=== PATIENT | male | born 1975 | race Caucasian/White ===

== ENCOUNTER 2016-10-15 14:52 | Day surgery (SDC) | payer MEDICAID, OTHER ==
[~2016-10-15] VITALS: Ht 185.4 cm; Wt 86.4 kg
[2016-10-15] VITALS (13 sets, daily range): BP systolic 111–135; BP diastolic 71–96; PULSE 78–108; RESP 8–30; O2SAT 95–100
--- NOTE | 2016-10-15 15:08 | ED.REPORT ---
HPI-General Illness Date of Service Oct 15, 2016 ED Provider: Russ Granados MD Patient is a 41 year old male who presents to the ED complaining of trouble swallowing onset last night.He is unable to manage his secretions or swallow fluids so he is spitting into a bottle. Associated symptoms involve sore throat , change in voice, and vomiting. He denies fever, cough, congestion, or any other symptoms. He had similar symptoms a month ago that resolved after a day. Nursing Notes Stated Complaint: DIFFICULTY SWALLOWING Chief Complaint: ENT & Mouth Nursing Notes Reviewed: Yes Allergies: Coded Allergies: No Known Allergies (Unverified , 10/15/16) Scheduled Omeprazole (Omeprazole) 20 Mg Capsule.dr 20 MG PO DAILY Miscellaneous Medications Magnesium Amino Acid Chelate (Magnesium) 100 Mg Tablet 100 MG PO Ubidecarenone (Coq10) 50 Mg Tab.chew 50 MG PO General Time Seen by MD: 15:06 Chief Complaint Other (Dysphagia) Hx Obtained From: Patient, Spouse Arrived By: Walk-in Sudden in Onset?: Yes Onset Occurred: Yesterday Symptom Duration: Since onset Similar Sx Previous: Yes Past Medical History Past Medical History Pericarditis Reports: GERD, Denies: Cancer Past Surgical History Reports: Appendectomy, Tonsillectomy Review of Systems -congestion Full Review of Systems Constitutional: Denies: Fever Ears / Nose / Throat: Reports: Sore throat, Voice change, Denies: Tongue swelling Respiratory: Denies: Non-productive cough GI: Reports: Dysphagia, Vomiting Complete sys rev & neg: except as marked. Physical Exam Vital Signs Vital Signs Date Time Temp Pulse Resp B/P Pulse Ox O2 Delivery O2 Flow Rate FiO2 10/15/16 16:29 102 30 135/96 100 Room Air 10/15/16 14:59 36.7 112 18 114/80 98 Room Air General/Constitutional: Well-developed, Well-nourished Head / Eyes: Atraumatic, Normocephalic Respiratory: Breath sounds normal, Clear to auscultation, No respiratory distress Abdomen / GI: Soft, Non-tender Skin: Warm, Dry Neurologic: Alert, Oriented, Nonfocal Psychiatric: Mood/affect normal, Behavior normal, Normal thought content ENT: Airway patent, Pharynx NL no tongue swelling Neck: Full range of motion, No swelling Interpretation & Diagnostics X-Ray Chest Interpretation Chest Xray Interpretation: No acute disease View: Portable, 1 view Interpretation / Wet Read by: Interpret - Radiologist Re-Eval/Medical Decision Med Decision/Clinical Course 41-year-old male history of acid reflux presenting with dysphagia since last night. Patient unable to tolerate by mouth. He failed glucagon and Pepsi. Admitted to endoscopy, Dr Desir. Time of Eval: 15:52 Re-Evaluation/Progress Note: rechecked pt. Tried to drink water but vomited. Time of Eval: 16:30 Re-Evaluation/Progress Note: Discussed admit to endo. Patient understands and agrees with plan. All questions addressed at this time. Consultation #1: Referral / Consult Name: Jon Desir MD Call Returned at: 15:48 Note: Discussed patient's case. Pt should try PO challenge. Consultation #2: Referral / Consult Name: Jon Desir MD Call Returned at: 16:25 Inventory Checker: Agrees with eval, Agrees with plan Note: Updated on pt case. Pt will go to endo. Counseled Regarding: Diagnosis, Lab results, Need for admission Discharge & Departure Primary Impression: Dysphagia Dysphagia type: unspecified Qualified Code: R13.10 - Dysphagia, unspecified Disposition: ADMITTED TO HOSPITAL Scribe Attestation Portions of this note were transcribed by Nacho Gutierrez. I, Dr. Granados personally performed the history, physical exam and medical decision-making; I reviewed and confirmed the accuracy of the information in the transcribed note. Signed by: Nacho Gutierrez 10/15/2016, 1715 Russ Granados MD Oct 15, 2016 15:08 NACHO GUTIERREZ Oct 15, 2016 15:15
[2016-10-15] MEDS ORDERED: Glucagon 1 mg/mL Inj IV ONE ×2 (15:55→17:06)
[2016-10-15] MEDS ORDERED: EPHEDrine/NS 5 mg/mL 5 mL Syringe ONE (17:06)
[2016-10-15] MEDS ORDERED: Propofol 10,000 mCg/mL 20 mL Inj ONE (17:06)
[2016-10-15] MEDS ORDERED: Phenylephrine/NS 100 mCg/mL 10 mL Syringe IVPUSH ONE (17:06)
[2016-10-15] MEDS ORDERED: Dexamethasone 4 mg/mL Inj ONE (17:06)
[2016-10-15] MEDS ORDERED: Ketamine 10 mg/mL 20 mL Inj ONE (17:06)
[2016-10-15] MEDS ORDERED: Ondansetron 2 mg/mL 2 mL Inj ONE (17:06)
[2016-10-15] MEDS ORDERED: fentaNYL-PF 50 mCg/mL 2 mL Inj ONE (17:06)
[2016-10-15] MEDS ORDERED: OMEP20CA11 PO (17:42)
[2016-10-15] MEDS ORDERED: UBID50TA3 PO (17:42)
[2016-10-15] MEDS ORDERED: MAGN100T5 PO (17:42)
[2016-10-15] MEDS ORDERED: Sodium Chloride LOK Flush 10 mL Syringe IV PRN (17:45)
[2016-10-15] MEDS ORDERED: fentaNYL-PF 50 mCg/mL 2 mL Inj IVPUSH PRN ×2 (17:45→19:30)
[2016-10-15] MEDS: 0.9% Sodium Chloride 1,000 ML IV PRN ×2 (17:47→19:04)
[2016-10-15] MEDS ORDERED: Lactated Ringer's 500 ML IV PRN (19:26)
[2016-10-15] MEDS ORDERED: Lactated Ringer's 1,000 ML IV SCH (19:26)
[2016-10-15] MEDS ORDERED: EPHEDrine Sulfate 50 mg/mL Inj IVPUSH PRN (19:30)
[2016-10-15] MEDS ORDERED: HYDROmorphone 1 mg/mL Inj IVPUSH PRN (19:30)
[2016-10-15] MEDS ORDERED: Dexamethasone 4 mg/mL Inj IVPUSH PRN (19:30)
[2016-10-15] MEDS ORDERED: Ondansetron 2 mg/mL 2 mL Inj IVPUSH PRN (19:30)
[2016-10-15] MEDS ORDERED: MetoCLOpramide 5 mg/mL 2 mL Inj IVPUSH PRN (19:30)
[2016-10-15] MEDS ORDERED: Phenylephrine 10,000 mCg/mL Inj IVPUSH PRN (19:30)
--- NOTE | 2016-10-15 19:33 | CONS ---
[address] [address] CONSULTATION REPORT PATIENT: JOSÉ MIGUEL CHAUDHRY : 1975 MR#: [id number] ADMIT: 10/15/2016 JOB ID: [id number] DATE OF SERVICE: REQUESTING PROVIDER: Russ Granados MD. REASON FOR CONSULTATION: Inability to swallow. HISTORY OF PRESENT ILLNESS: This is a 41-year-old male who had similar problems where he transiently could not swallow any liquids about a month ago. He has a lengthy history of reflux for which he is treated using epil-juy-jyszdxg antisecretory therapy. He could not recall the name. He was eating something yesterday. It sounds like pork ribs. He denies that he actually has any stuck in his esophagus but shortly after starting his meal has not been able to consume even water since then. He was under the impression that he vomited everything but again cannot continue tolerate spit or fluids. REVIEW OF SYSTEMS: No cardiopulmonary complaints. Otherwise, review is negative. ALLERGIES: No known drug allergies. MEDICATIONS: He takes an [id number]-rah-[id number] antisecretory. Otherwise, no meds. No aspirin, no NSAIDs. PAST MEDICAL HISTORY: Pericarditis, GERD, appendectomy, tonsillectomy. FAMILY HISTORY: Noncontributory. SOCIAL HISTORY: No habits. PHYSICAL EXAMINATION: The patient is in no distress, conversational. Alert, oriented, appropriate, cooperative. Pulse in the low 100s. Blood pressure 130/92, normal pulse ox breathing comfortably, Afebrile, Lungs clear bilaterally, acceptable air entry, heart regular, no peripheral pitting edema, abdomen soft, non tender. ASSESSMENT AND PLAN: This is a 41 year old with suspected impacted esophageal foreign body. EGD was discussed. The patient consents to procedure. MTDD
--- NOTE | 2016-10-15 20:27 | ENDO ---
[address] [address] ENDOSCOPY PROCEDURE PATIENT: JOSÉ MIGUEL CHAUDHRY : 1975 MR#: [id number] ADMIT: 10/15/2016 JOB ID: [id number] INDICATIONS: This is a 41-year-old male with suspected esophageal foreign body. PROCEDURE: Esophagogastroscopy with biopsy and endoscopic relief of food impaction. A 22 modifier was requested. This procedure took almost 2 hours because of the difficulty sedation. COMPLICATIONS: None identified. SEDATION: Conscious sedation medications given by me were 5 mg Versed, 100 mcg fentanyl. After we aborted our attempt at conscious sedation, Dr. Marcel Gallego was involved and pursued at 1st MAC level of anesthesia. We then had to graduate all the way up to full general anesthesia with endotracheal intubation. PROCEDURE INFORMATION: After the risks and benefits were explained, written and verbal informed consent was obtained, the patient was brought into the endoscopy suite and placed into the left lateral decubitus position. Sedation was initially achieved as above. The patient seemed to have a tremendous gag reflex in spite of lidocaine gargle and spit. We could not even approach the posterior oropharynx without inducing significant retching and gagging. We aborted further attempt at intubation. We contacted Dr. Gallego, who was able to visit with the patient briefly and then apply further sedation in the form of propofol based MAC. Again, we attempted to intubate the esophagus but the patient just simply did not seem to tolerate this, even in spite of deep sedation. Because he was a little combative at this level with what we knew to be a foreign body likely in the distal esophagus, we elected to proceed with full endotracheal intubation. The patient was awakened slightly oxygenated and then intubated. We then, with some difficulty, found the upper esophageal sphincter with the endoscope. (The patient has a very crowded posterior oropharynx.) Dr. Gallego used the glide scope to perform the intubation. We advanced the scope to the mid esophagus. There was a bolus of chewed material sitting at around 30 cm from the incisors. I grasped this with a polypectomy snare, and after 0.25 mg of IV glucagon to induce some relaxation, we were able to pull this back into the proximal esophagus. However, it broke off at the level of the upper esophageal sphincter leaving a large part of the bolus in the esophagus. We thereafter went back down in and opened up a Siddiqui Net. We easily grasped the majority of the bolus with the Siddiqiu Net and pulled it back out per os in one piece. Photographs were taken. The scope was then reintroduced into the esophagus and advanced down to the stomach to confirm that we had cleared the bolus. We did not advance beyond proximal stomach. The stomach was decompressed, the scope removed from the patient who tolerated the procedure reasonably well. FINDINGS: 1. Duodenum not seen. 2. Stomach. Limited proximal views of the stomach appeared largely unremarkable. 3. Esophagus: The chewed foreign body (port) was lodged at around 30 cm from the incisors. This was removed as described above. There was a small amount of corrugated appearance to the proximal esophagus suggesting the possibility of eosinophilic disease. We took a biopsy from the mid esophagus to further evaluate this microscopically. From where the bolus was all the way down to the GE junction, there was evidence of severe ulcerative esophagitis but no singular focal lesion, stricture, ring, etc. ENDOSCOPIC DIAGNOSES: 1. Successful endoscopic relief of esophageal foreign body. 2. Mildly corrugated proximal esophagus. 3. Severe distal ulcerative esophagitis. RECOMMENDATIONS: 1. The patient will be allowed recovery in the PACU and then discharge home as per hospital policies. 2. The patient should be allowed access to dysphagia diet as tolerated. 3. Prilosec 20 mg twice per day. 4. Await histopathology. 5. Repeat EGD with anesthesia in four weeks time to evaluate for complete mucosal healing. 6. Referral is generated for sleep medicine consultation considering his airway and symptoms consistent with severe sleep apnea.
--- NOTE | 2016-10-15 20:46 | NUR ---
Recover and Discharge Pt arrived to [facility] 1030 at 1999, Alert/oriented and talking. Pt stayed in [facility] and drank 1 glass of water and 2 glasses of apple juice. Tolerated these well. VSS. Pt reporting no pain just generalized soreness and denies nausea. After 40 min, pt wanting to try ambulating and got up steady on his feet, ambulated the room and felt no dizziness. IV taken out without issues. Pt given and discussed DC instructions from TAN[facility]. Mom here to drive pt home. Pt DC'd with mom at 2044 with all belongings.
--- NOTE | 2016-10-16 06:00 | DRSVH ---
PROCEDURE: X-RAY CHEST ONE VIEW, PORTABLE ([id number]) INDICATIONS: dysphagia TECHNIQUE: One view of the chest was acquired. COMPARISON: None. FINDINGS: Surgical changes and devices: None. Lungs and pleura: No pleural effusions or pneumothorax. Lungs are clear. Mediastinum: Mediastinal contours appear normal. Heart size is normal. Bones and chest wall: No suspicious bony lesions. Overlying soft tissues appear unremarkable. IMPRESSION: No acute disease Dictated by: Eh Napier M.D. on 10/15/2016 at 16:11 Approved by: Eh Napier M.D. on 10/15/2016 at 16:12
--- NOTE | 2016-10-17 11:15 | PATH ---
SURGICAL PATHOLOGY Attending Physician:Catarino Diaz CASE STATUS: Signed Out PATIENT NAME: JOSÉ MIGUEL CHAUDHRY PID: [id number] : 1975 DATE COLLECTED:10/15/2016 00:00 SPECIMEN: Esophagus, Biopsy CLINICAL HISTORY: ESOPHAGITIS, RULE OUT EOSINOPHILIC ESOPHAGITIS 1). MID ESOPHAGUS BIOPSY FINAL DIAGNOSIS: Mid-Esophagus Biopsy: Changes consistent with eosinophilic esophagitis (eosinophils number greater than 70 per high-power field). Negative for dysplasia and malignancy. ICD10: K20.0 GROSS DESCRIPTION: The specimen is received in one formalin filled container labeled with the patient's name, sublabeled "mid-esophagus" and consists of 2 portions of tissue which aggregate to 0.2 x 0.2 x 0.2 CM. The specimen is entirely submitted in one cassette. 10/16/2016 [facility] ICD-9 CODES: CPT CODES: 1: 26139 Electronically Signed Out Jon Gamboa MD [facility] Pathology [facility] [address], [place] [address] Technical component performed at [facility], [facility] [address], [address]
== END 2016-10-15 23:59 | disposition home or self-care (01) ==
LOC: SED 14:52 → END 17:05
PROVIDERS: ATTEND Internal Medicine Gastroenterology
DX: T18.128A Food in esophagus causing other injury, initial encounter (principal); K20.0 Eosinophilic esophagitis
CPT/HCPCS: 43239; 43247; 71010; 88305; 96374; 99285; J1100; J1610; J2250; J2370; J2405; J3010; J7030; J7120

== ENCOUNTER 2016-11-20 01:29 | Day surgery (SDC) | payer OTHER ==
[~2016-11-20 01:29] MED LIST: MAGN100T5 PO; OMEP20CA11 PO; UBID50TA3 PO
[2016-11-20] MEDS ORDERED: Lactated Ringer's 1,000 ML IV ONE (06:00)
== END 2016-11-20 23:59 | disposition home or self-care (01) ==
LOC: END 01:29
PROVIDERS: ATTEND Internal Medicine Gastroenterology
DX: K22.10 Ulcer of esophagus without bleeding (principal); Z53.8 Procedure and treatment not carried out for other reasons